=== PATIENT | male | born 1950 | race Caucasian/White ===

== ENCOUNTER 2020-11-02 09:12 | Day surgery (SDC) | payer OTHER ==
[~2020-11-02 09:12] MED LIST: Lactated Ringers 1,000 ML IV SCH
[2020-11-02] MEDS ORDERED: Citric Acid/Sodium Citrate Solution 30 ML Cup PO ONE (09:30)
[2020-11-02] MEDS ORDERED: fentaNYL 100 MCG/2 ML SDV ONE (09:34)
[2020-11-02] MEDS ORDERED: Propofol 200 MG/20 ML SDV ONE ×2 (09:34→10:42)
[2020-11-02] MEDS ORDERED: Metoclopramide 10 MG/2 ML SDV ONE (10:40)
--- NOTE | 2020-11-02 13:52 | OR ---
DATE OF SURGERY: 11/02/2020. REFERRING PROVIDER: Allie Dave MD PRE-OPERATIVE DIAGNOSES: 1. Abdominal pain for the past 1 year with what sounds like intermittent obstruction/bloating/gassiness. 2. History of chronic loose stools, although stools have been better over the past month. This is the patient's first colonoscopy. He denies any family history of colon cancer. POST-OPERATIVE DIAGNOSIS: Incomplete colonoscopy as I was only able to advance to about 25 cm before encountering a sharp kink/loop to the area. This was unable to be safely navigated despite turning him onto his back and then again onto his left side and using some abdominal pressure. PROCEDURE: Attempted colonoscopy, but incomplete, was only able to advance to 25 cm from the anal verge. SURGEON: Clinton Saavedra M.D. ANESTHESIA: Monitored anesthesia care. BOWEL PREP: Good in the small visualized portion of the colon. Luis is a 69-year-old male who was brought to the endoscopy suite after discussing risks and benefits of the procedure. Informed consent was obtained for conscious sedation and colonoscopy with or without biopsy and/or polypectomy. We also discussed possibility of missed lesions. Pre-procedure exam was unremarkable. IV, oxygen, and monitors were placed. The patient was placed in the left lateral decubitus position. Sedation was administered and a digital rectal exam was performed and unremarkable. Colonoscope was passed into the rectum and slowly advanced to about 25 cm. At this position, I did encounter a sharp kink or loop present. Despite scope maneuvering, abdominal pressure, and moving the patient onto his back, was unable to safely navigate past this area. The visualized portion of the distal sigmoid colon and rectal area was unremarkable. Retroflexion was performed and unremarkable. Cecum was viewed and photographed. The colonoscope was slowly withdrawn and the mucosa was closed observed in a direct circumferential manner. Scope was removed. The patient tolerated the procedure well. The patient was monitored until that baseline status. Discharge instructions were reviewed and the patient was discharged in good condition. COMPLICATIONS: The patient was noted to have laryngeal spasm on initial anesthesia prior to the scope even being inserted. We did wait a while before inserting the scope until his sats improved. TOTAL TIME: 25 minutes. ESTIMATED BLOOD LOSS: None. RECOMMENDATIONS/FOLLOW-UP: I would consider imaging study (like CT scan with contrast and/or barium enema) and/or having [facility] attempt colonoscopy in the near future. I would like to kindly thank Dr. Dave for this referral. DMB: 11/02/2020 11:38:13 MODL: 11/02/2020 12:38:06 /[id number]
== END 2020-11-02 12:30 | disposition home or self-care (01) ==
LOC: VM.SDS 09:12
PROVIDERS: ATTEND Family Medicine
DX: K52.9 Noninfective gastroenteritis and colitis, unspecified (principal); M25.531 Pain in right wrist; R10.30 Lower abdominal pain, unspecified; J38.5 Laryngeal spasm; E78.5 Hyperlipidemia, unspecified; I10 Essential (primary) hypertension; I25.10 Atherosclerotic heart disease of native coronary artery without angina pectoris; Z79.899 Other long term (current) drug therapy; Z79.82 Long term (current) use of aspirin
CPT/HCPCS: 00811; A9270-GY; J2704; J2765; J3010; J7120